=== PATIENT | female | born 1990 | race Caucasian/White ===

== ENCOUNTER 2022-06-29 15:03 | Emergency (ER) | payer BC, OTHER ==
[~2022-06-29] VITALS: Ht 167.6 cm; Wt 69.8 kg
[2022-06-29] MEDS ORDERED: ALBUTEROL SULF 2.5 MG/0.5ML(0.5%) NEB SOLN NEB ONE (19:15)
[2022-06-29] MEDS ORDERED: IPRATROPIUM BROM 0.5 MG/2.5ML INH SOL NEB ONE (19:15)
[2022-06-29] MEDS ORDERED: AZIT250T8 PO (20:37)
[2022-06-29 20:55] VITALS: BP 121/72
== END 2022-06-29 21:00 | disposition home or self-care (01) ==
LOC: ER 15:06
DX: J06.9 Acute upper respiratory infection, unspecified (principal); R06.02 Shortness of breath; R07.89 Other chest pain; Z20.822 Contact with and (suspected) exposure to COVID-19
CPT/HCPCS: 36415; 71046; 87426; 87804; 94640; 99284; J7644